=== PATIENT | female | born 1945 | race Caucasian/White ===

== ENCOUNTER → 2016-06-02 | Outpatient (CLI) | payer MEDICARE, OTHER ==
[~2016-06-02] MED LIST: methylPREDNISolone 80 MG/ML (DEPO MEDROL) VIAL IM ONE
== END ==
LOC: PMC 12:28
PROVIDERS: ATTEND Family Medicine
DX: M54.42 Lumbago with sciatica, left side (principal)
CPT/HCPCS: 62323; J1040

== ENCOUNTER → 2016-07-26 | Outpatient (REF) | payer MEDICARE, OTHER ==
[~2016-07-26] MED LIST changes: +ACET325T38 PO; +AMLO10TA82 PO; +ASPI-860 PO; +CIPR500S2 PO; +CLOT10TR MM; +DOCU100C PO; +FERR28TA PO; +GLUC1000 PO; +LISI1TAB10 PO; +NAPR220C11 PO; +PERM60CR4 TP; +PRAM0.12 PO; +RALO60TA PO; +SMV20T PO; +[UNRECOGNIZED DRUG - CODE] TP; -methylPREDNISolone 80 MG/ML (DEPO MEDROL) VIAL IM ONE
[2016-07-26 11:24] LABS: BASOPHILS % (AUTO) 1 % (0-2); EOSINOPHILS # (AUTO) 0.1 10^3uL; EOSINOPHILS % (AUTO) 1 % (0-4); MEAN CORPUSCULAR HEMOGLOBIN 31.3 PG (26.0-34.0); MEAN CORPUSCULAR HGB CONC 32.5 g/dL (31.0-37.0); MEAN CORPUSCULAR VOLUME 96 FL (80-100); MEAN PLATELET VOLUME 11.8 FL (6.0-9.5); MONOCYTES # (AUTO) 0.4 X10^3; MONOCYTES % (AUTO) 8 % (3-11); NEUTROPHILS % (AUTO) 55 % (51-67); PLATELET COUNT 216 10^3uL (150-450)
[2016-07-26 11:31] LABS: ALBUMIN 4.3 g/dL (3.4-5.0); ANION GAP 12.3 MEQ/L (3-15); CALCULATED IONIZED CALCIUM 4.4 mg/dL (3.8-4.6); TOTAL PROTEIN 7.4 g/dL (6.4-8.5)
== END ==
LOC: LAB 10:25
PROVIDERS: ATTEND Nurse Practitioner Family
DX: I10 Essential (primary) hypertension (principal); E78.00 Pure hypercholesterolemia, unspecified; D64.9 Anemia, unspecified
CPT/HCPCS: 80053; 80061; 82728; 85025

== ENCOUNTER → 2016-07-29 | Outpatient (CLI) | payer MEDICARE, OTHER ==
--- NOTE | 2016-07-29 12:43 | Diagnostic Imaging Report ---
INDICATION: 71-year-old postmenopausal female for screening osteoporosis. COMPARISON: 08/18/2009 TECHNIQUE: DEXA of the lumbar spine and bilateral hips was performed. FINDINGS: The L2-L4 vertebrae were used for assessment of the lumbar spine (L1 was excluded due to degenerative sclerotic changes which would falsely elevate bone mineral assessment). The bone mineral density for the total lumbar spine is 1.137 g/cm2, and the T score is -0.5, and Z-score is 0.6 . The left femoral neck has a bone density of 0.861 g/cm2, and the T score is -1.0, and Z-score is 0.2. The right femoral neck has a bone density of 0.898 g/cm2, and the T score is -0.7, and Z-score is 0.5. There has been no statistically significant change in bone mineral density in the lumbar spine or hips since prior examination of 2009. IMPRESSION: 1. Normal bone mineral density. 2. No significant bone loss since examination of 2009. Dictated by: Dictated on workstation # [id number]
== END ==
LOC: RAD 08:57
PROVIDERS: ATTEND Nurse Practitioner Family
DX: Z78.0 Asymptomatic menopausal state (principal)
CPT/HCPCS: 77080